=== PATIENT | female | born 1965 | race Caucasian/White ===

== ENCOUNTER 2018-11-15 08:38 | Day surgery (SDC) | payer OTHER ==
[2018-11-12 15:52] VITALS: BMI 29.1
[~2018-11-15] VITALS: Ht 152.4 cm; Wt 69.4 kg
[2018-11-15] VITALS (12 sets, daily range): BP systolic 90–123; BP diastolic 53–70; PULSE 56–74; RESP 11–23; Ht 152.4 cm; Wt 69.4 kg
--- NOTE | 2018-11-15 08:34 | HPN ---
Date/Time of Note Date/Time of Note DATE: 11/15/18 TIME: 08:33 Interval H&P Admission Note Pt. seen H&P reviewed: No system changes SAMANTHA SANCHEZ MD Nov 15, 2018 08:34
[2018-11-15] MEDS ORDERED: LACTATED RINGER'S 1,000 ML IV SCH (10:00)
[2018-11-15] MEDS ORDERED: ROPIVACAINE 0.5 % 30 ML VIAL ONE (11:07)
[2018-11-15] MEDS ORDERED: NEOMYC/POLYMYX/BACIT 30 GM OINT ONE (11:08)
[2018-11-15] MEDS ORDERED: POLYMYXIN/BACITRACIN 1L IRRIG ONE (11:08)
--- NOTE | 2018-11-15 11:09 | PREAC ---
Date/Time of Note Date/Time of Note DATE: 11/15/18 TIME: 11:07 Anesthesia Eval and Record Evaluation Time Pre-Procedure Interview DATE: 11/15/18 TIME: 11:07 Age 53 Sex female NPO: 8 hrs Preoperative diagnosis R. Foot Dorsal Exttososis Planned procedure R. Foot 2nd Metatarsal Osteotomy Past Medical History Past Medical History: Includes GI: Obesity Surgery & Anesthesia Issues No known issue Meds Anticoagulation: No Beta Caryl within 24 hr: No Reason Beta Caryl not given: Pt. not on B-Caryl Discontinued Reported Medications [No Meds] No Conflict Check 11/11/13 Current Medications Lactated Ringer's 1,000 ml @ 0 mls/hr Q0M IV ; Start 11/15/18 at 10:00 Meds reviewed: Yes Allergies Coded Allergies: No Known Drug Allergies (Unverified Allergy, Unknown, 11/15/18) Allergies Reviewed: Yes Labs/Studies Labs Reviewed: Reviewed by anesthesiologist test: Negative Pre-procedure Exam Last vitals Vital Signs Date Temp Pulse Resp B/P (MAP) Pulse Ox O2 O2 Flow FiO2 Time Delivery Rate 11/15/18 99.0 74 16 123/64 96 Room Air 08:55 (83) Airway: Adequate mouth opening Mallampati: Mallampati II Teeth: Normal Lung: Normal Heart: Normal ASA Physical Status ASA physical status: 2 Emergency: None Planned Anesthetic General/MAC: LMA Planned Pain Management Single shot nerve block Pre-operative Attestations Prior to commencing anesthesia and surgery, the patient was re-evaluated, there was verification of: *The patient's identity *The results of appropriate recent lab work and preoperative vital signs *The above evaluation not changing prior to induction *Anesthetic plan, risk benefits, alternative and complications discussed with patient/family; questions answered; patient/family understands, accepts and wi shes to proceed. NADIYA CARABALLO MD Nov 15, 2018 11:09
[2018-11-15] MEDS ORDERED: KETOROLAC 30 MG INJ ONE (11:13)
[2018-11-15] MEDS ORDERED: CEFAZOLIN 1 GM INJ ONE (11:13)
[2018-11-15] MEDS ORDERED: ONDANSETRON 4 MG INJ ONE (11:13)
[2018-11-15] MEDS ORDERED: PROPOFOL 20 ML ONE (11:13)
[2018-11-15] MEDS ORDERED: MIDAZOLAM 1 MG/ML 2 ML INJ ONE (11:13)
[2018-11-15] MEDS ORDERED: FENTAnyl 50 MCG/ML VIAL ONE (11:14)
--- NOTE | 2018-11-15 12:53 | PAC ---
Date/Time of Note Date/Time of Note DATE: 11/15/18 TIME: 12:53 Post-Anesthesia Notes Post-Anesthesia Note Last documented vital signs Vital Signs Date Temp Pulse Resp B/P (MAP) Pulse Ox O2 O2 Flow FiO2 Time Delivery Rate 11/15/18 99.0 74 16 123/64 96 Room Air 08:55 (83) Activity: WNL Respiratory function: WNL Cardiovascular function: WNL Mental status: Baseline Pain reasonably controlled: Yes Hydration appropriate: Yes Nausea/Vomiting absent: Yes NADIYA CARABALLO MD Nov 15, 2018 12:53
[2018-11-15] MEDS ORDERED: FENTAnyl 50 MCG/ML VIAL IV PRN (13:00)
[2018-11-15] MEDS ORDERED: OXYCODONE/ACETAMINOPHEN (5/325) TAB PO PRN (13:00)
[2018-11-15] MEDS ORDERED: KETOROLAC 30 MG INJ IV ONE (13:00)
[2018-11-15] MEDS ORDERED: ONDANSETRON 4 MG INJ IV PRN (13:00)
[2018-11-15] MEDS ORDERED: morphine 2 MG INJ IV PRN (13:00)
[2018-11-15] MEDS ORDERED: HYDROmorphONE 1 MG/5 ML IV SYRINGE IV PRN (13:00)
--- NOTE | 2018-11-16 06:27 | OPR ---
DATE OF OPERATION: 11/15/2018 SURGEON: Samantha Middleton MD [employer] OPERATOR: None. PREOPERATIVE DIAGNOSES: 1. Right foot 2nd metatarsal dorsal exostosis. 2. Right foot 2nd metatarsal painful metatarsalgia. POSTOPERATIVE DIAGNOSES: 1. Right foot 2nd metatarsal dorsal exostosis. 2. Right foot 2nd metatarsal painful metatarsalgia. OPERATION PERFORMED: 1. Right foot 2nd metatarsal dorsal exostectomy. 2. Right foot 2nd metatarsal capsulotomy. 3. Right foot 2nd metatarsal dorsiflexion Yesi osteotomy. 4. Right ankle block to 5 nerves 5. Right foot 2nd MTP joint open loose body removal ANESTHESIOLOGIST: NADIYA CARABALLO MD ANESTHESIA: MAC with local ankle block. TOURNIQUET TIME: 31 minutes with ankle tourniquet. ESTIMATED BLOOD LOSS: Minimal. IMPLANTS: Arthrex 2.0 mm snap-off screw. COMPLICATIONS: None. INDICATIONS: The patient has had ongoing pain over her right 2nd metatarsal with MRI confirming evidence of dorsal exostosis as well as chronic pain over her plantarflexed 2nd metatarsal with plantar keratosis. Given the patient's pain, the patient was indicated for surgical procedure. RISK NOTE: The patient understood the risks and benefits of surgery in the patient's [place] language including, but not limited to infection, bleeding, loss of limb, loss of life, need for future surgery. The patient understood these risks and benefits by signing surgical consent form. The patient understood that there is risk of deep vein thrombosis as well. OPERATIVE NOTE: The patient was met in the preoperative holding area. The correct operative extremity was marked and confirmed with the patient and consent. The patient was brought to the operative theater, placed supine on the operative table and given preoperative antibiotics and preoperative anesthesia. The patient was given preoperative ankle block in typical fashion to the sural, saphenous, DPN, SPN, and post tib nerve with 30 mL of Naropin 0.5% under sterile conditions. The patient was prepped and draped in normal sterile fashion. Time-out was taken. All parties in operating room agreed this is the correct patient, extremity and procedure. Tourniquet was brought up using an Esmarch and 4 wraps of Esmarch over lap sponges. Incision was made over the 2nd metatarsophalangeal joint and brought down to the dorsal capsule with care to avoid any injury to neurovascular structures with EHL retracted laterally. The capsule was then incised and extensive dorsal osteophyte was noted as well as a loose body. The noted loose body was removed. Dorsal osteophyte was removed thoroughly and rasped. Extensive synovitis was debrided thoroughly as well. Sing a sagittal saw, a dorsiflexion osteotomy was performed with approximately 1 mm dorsiflexion wedge removed. The metatarsal head was then rotated dorsally, held in place and a snap-off screw 2 mm Arthrex screw was placed just proximal to the site of the osteotomy. Fluoroscopy confirmed maintenance of the metatarsal parabola. It has shown excellent range of motion in 2nd metatarsophalangeal joint with no evidence of any dorsal blockage. The wound was then irrigated thoroughly. The capsule was loosely repaired with 2-0 Vicryl and then the wound was then closed with 3-0 Monocryl followed by 4-0 nylon in vertical mattress fashion. At the end of the case, tourniquet was brought down and hemostasis had been achieved prior to final closure. The wound was then dressed with Xeroform and triple antibiotic ointment, 4 x 4s. She was placed in a well-padded forefoot semi- compressive dressing. At the end of the case, the toes were warm and perfused. The patient was taken back to PACU in stable condition. Dictated By: SAMANTHA PINA/SHIVA Conf#: [id number] DID#: [id number]
== END 2018-11-15 14:45 | disposition home or self-care (01) ==
LOC: SDS 08:38
PROVIDERS: ATTEND Orthopaedic Surgery
DX: D16.31 Benign neoplasm of short bones of right lower limb (principal); M77.41 Metatarsalgia, right foot; L85.1 Acquired keratosis [keratoderma] palmaris et plantaris
CPT/HCPCS: 28104; 28308; 73630; 82306; J0690; J1885; J2250; J2405; J2795; J3010; Z7512; Z7610